=== PATIENT | female | born 1945 | race Two or more races ===

== ENCOUNTER 2022-05-12 04:58 | Day surgery (SDC) | payer OTHER ==
[2022-05-10 10:54] VITALS: BMI 20.7
[2022-05-12] MEDS ORDERED: LIDOCAINE 1%/EPI 1:100000 (20 ML MULTI DOSE VIAL) ONE (10:29)
[2022-05-12] MEDS ORDERED: MIDAZOLAM HCL 2 MG/2 ML SINGLE DOSE VIAL ONE (11:38)
[2022-05-12] MEDS ORDERED: ceFAZolin SODIUM 1 GM VIAL IVPB ONE (11:49)
[2022-05-12] MEDS ORDERED: PROPOFOL 20 ML ONE (11:57)
[2022-05-12] MEDS ORDERED: ceFAZolin SODIUM 1 GM VIAL ONE (12:01)
[2022-05-12] MEDS ORDERED: LIDOCAINE 1%/EPI 1:100000 (20 ML MULTI DOSE VIAL) IJ ONE ×2 (12:17)
[2022-05-12] MEDS ORDERED: ONDANSETRON 4 MG/2 ML VIAL IVPUSH PRN (12:58)
[2022-05-12] MEDS ORDERED: oxyCODONE HCL 5 MG TABLET PO PRN (12:58)
[2022-05-12] MEDS ORDERED: LACTATED RINGERS SOLUTION 1,000 ML IV SCH (13:00)
[2022-05-12 16:26] VITALS: RESP 20; TEMP 97.2
[2022-05-12 16:32] VITALS: BP 142/74; PULSE 62
== END 2022-05-12 15:15 | disposition home or self-care (01) ==
LOC: JASU-SURG 04:58
PROVIDERS: ATTEND Surgery
PROC: 0JB70ZZ Excision of Back Subcutaneous Tissue and Fascia, Open Approach (ICD-10-PCS; principal; 2022-05-12 11:30)
DX: D17.1 Benign lipomatous neoplasm of skin and subcutaneous tissue of trunk (principal)
CPT/HCPCS: 88304-TC; 88305-TC; 94760